=== PATIENT | male | born 1975 | race Hispanic/Latino ===

== ENCOUNTER 2023-01-10 06:02 | Day surgery (SDC) | payer OTHER ==
[2023-01-08 12:27] VITALS: BP 146/93
[2023-01-08 12:27] LABS: BASOPHILS % (AUTO) 1.1 % (0.0-5.0); EOSINOPHILS % (AUTO) 2.5 % (0.0-8.0); HEMATOCRIT 43.3 % (42-54); LYMPHOCYTES % (AUTO) 35.5 % (21.0-51.0); MEAN CORPUSCULAR HEMOGLOBIN 29.7 pg (27.0-33.0); MEAN CORPUSCULAR HGB CONC 34.2 g/dL (32.0-36.0); MEAN CORPUSCULAR VOLUME 86.9 fL (79-99); NEUTROPHILS % (AUTO) 52.5 % (40.0-77.0); PLATELET COUNT (AUTO) 227 K/uL (130-400); RED BLOOD CELL COUNT(AUTO) 4.98 MIL/uL (4.50-6.20); RED CELL DISTRIBUTION WIDTH 13.3 % (11.0-15.5); WHITE BLOOD COUNT (AUTO) 8.5 K/uL (4.8-10.8)
[2023-01-08 12:34] LABS: POTASSIUM 3.8 mmol/L (3.5-5.1)
[2023-01-08 12:36] LABS: INR 1.01 (0.85-1.15)
[2023-01-10] VITALS (14 sets, daily range): BP systolic 117–149; BP diastolic 68–94
[~2023-01-10] VITALS: Ht 180.3 cm; Wt 109.6 kg
[~2023-01-10 06:02] MED LIST: CETI1TAB PO; FLUT16H NASAL
[2023-01-10] MEDS ORDERED: LACTATED RINGERS 1000ML 1,000 ML IV ONE (06:15)
[2023-01-10] MEDS ORDERED: CEFAZOLIN SODIUM 2 GM VIAL ONE (06:15)
[2023-01-10] MEDS ORDERED: FAMOTIDINE 20MG VIAL IV ONE (06:52)
[2023-01-10] MEDS ORDERED: LIDOCAINE PF 100MG/5ML (2%) SYRINGE 5ML ONE (07:00)
[2023-01-10] MEDS ORDERED: CEFAZOLIN SODIUM 2 GM VIAL IVPB ONE (07:00)
[2023-01-10] MEDS ORDERED: FENTANYL CITRATE PF 50 MCG/1 ML 2ML VIAL ONE (07:00)
[2023-01-10] MEDS ORDERED: ROCURONIUM 10MG/1ML SYR 10 MG/ML ML ONE (07:00)
[2023-01-10] MEDS ORDERED: PROPOFOL 10 MG/ML 20ML VIAL IV ONE (07:00)
[2023-01-10] MEDS ORDERED: GLYCOPYRROLATE 1 MG/5 ML SYRINGE ONE (07:00)
[2023-01-10] MEDS ORDERED: PHENYLEPHRINE HCL 10 MG/ML 1ML VIAL IV ONE (07:04)
[2023-01-10] MEDS ORDERED: MIDAZOLAM HCL 1 MG/ML 2ML VIAL ONE (07:13)
[2023-01-10] MEDS ORDERED: ONDANSETRON 4MG INJ ONE (07:38)
[2023-01-10] MEDS ORDERED: NEOSTIGMINE 5MG/5ML SYR IV ONE (08:07)
[2023-01-10] MEDS ORDERED: MEPERIDINE-PF 25 MG/ML SYG ONE (08:17)
== END 2023-01-10 09:40 | disposition home or self-care (01) ==
LOC: DAH 06:02
PROVIDERS: ATTEND Orthopaedic Surgery
DX: M23.321 Other meniscus derangements, posterior horn of medial meniscus, right knee (principal); Z20.822 Contact with and (suspected) exposure to COVID-19; M65.861 Other synovitis and tenosynovitis, right lower leg; M22.41 Chondromalacia patellae, right knee; E66.9 Obesity, unspecified; Z79.01 Long term (current) use of anticoagulants; Z80.0 Family history of malignant neoplasm of digestive organs; Z98.890 Other specified postprocedural states; Z68.33 Body mass index [BMI] 33.0-33.9, adult
CPT/HCPCS: 80048; 85025; 85610; 85730; 87426; 36415; 29881; A6260; A4663; A4606; J7120; J3490 ×2; J3010; J2710; J2001; J2250; J2704; J2405; J2175; J2370; J0690 ×2; A6223; A4649 ×2; A5120; A4215; A4223; A4222; A4221; A6450